=== PATIENT | female | born 1985 ===

== ENCOUNTER 2022-04-30 10:43 | Outpatient (CLI) | payer OTHER | END 2022-04-30 12:15 | disposition home or self-care (01) | LOC: PRENATAL 10:43 | PROVIDERS: ATTEND Obstetrics & Gynecology Maternal & Fetal Medicine | DX: Z76.1 Encounter for health supervision and care of foundling (principal) ==

== ENCOUNTER 2022-07-06 09:46 | Outpatient (CLI) | payer OTHER | END 2022-07-06 11:25 | disposition home or self-care (01) | LOC: PRENATAL 09:46 | PROVIDERS: ATTEND Obstetrics & Gynecology Maternal & Fetal Medicine | DX: O36.80X0 Pregnancy with inconclusive fetal viability, not applicable or unspecified (principal); O09.529 Supervision of elderly multigravida, unspecified trimester; O34.219 Maternal care for unspecified type scar from previous cesarean delivery; O44.00 Complete placenta previa NOS or without hemorrhage, unspecified trimester; Z3A.20 20 weeks gestation of pregnancy ==

== ENCOUNTER 2022-11-08 09:45 | Inpatient (IN) | payer OTHER ==
[~2022-11-08] VITALS: Ht 152.4 cm; Wt 77.1 kg
[2022-11-08] MEDS ORDERED: PRENATABS RX T1 EACH PO (12:59)
[2022-11-14] MEDS ORDERED: OXYC1TAB9 PO (11:07)
[2022-11-14] MEDS ORDERED: COLACE100 MG PO (11:07)
[2022-11-14] MEDS ORDERED: SIMETHICONE80 MG PO (11:07)
[2022-11-14] MEDS ORDERED: IBU800 MG PO (11:07)
== END 2022-11-14 13:07 | disposition home or self-care (01) | DRG 788 ==
LOC: OB/GYN 11-11 09:45 → O/R 11-11 09:50 → OB/GYN 11-11 14:00
PROVIDERS: ADMIT Obstetrics & Gynecology; ATTEND Obstetrics & Gynecology
PROC: 4A1HXCZ Monitoring of Products of Conception, Cardiac Rate, External Approach (ICD-10-PCS; 2022-11-11)
PROC: 10D00Z1 Extraction of Products of Conception, Low, Open Approach (ICD-10-PCS; principal; 2022-11-11 14:00)
DX: O34.211 Maternal care for low transverse scar from previous cesarean delivery (principal); Z3A.38 38 weeks gestation of pregnancy; Z37.0 Single live birth; Z20.822 Contact with and (suspected) exposure to COVID-19